=== PATIENT | female | born 1930 | race Caucasian/White ===

== ENCOUNTER 2018-10-29 08:44 | Emergency (ER) | payer MEDICARE, BC ==
--- NOTE | 2018-10-29 08:50 | EDM.PDOC ---
ED HPI GENERAL MEDICAL PROBLEM - General Chief Complaint: Respiratory Problem Stated Complaint: ER Time Seen by Provider: 10/29/18 08:48 Source of Information: Reports: EMS, EMS Notes Reviewed, Penitentiary Records, RN, RN Notes Reviewed History Limitations: Reports: Altered Mental Status (Severe advanced dementia) - History of Present Illness INITIAL COMMENTS - FREE TEXT/NARRATIVE: Patient is brought to the ED at [facility] via EMS for "trouble breathing." According to [place] records, the patient had an episode of "respiratory distress. " Patient is a poor historian due to advanced dementia. Vital signs were stable prior to transport. EMS reports vitals were also stable en route. Patient has not had any upper respiratory infections. No history of COPD. Patient did not have any productive cough. No reported chest pain or new focal neurological problems. Onset: Today Onset Date: 10/29/18 - Related Data Allergies Allergy/AdvReac Type Severity Reaction Status Date / Time No Known Drug Allergies Allergy Other Verified 10/29/18 08:52 Home Meds: Home Meds Carbidopa/Levodopa [Carbidopa-Levodopa 25-100] 25 - 100 mg PO DAILY 01/25/14 [ History] Simvastatin 20 mg PO DAILY 01/25/14 [History] amLODIPine Besylate [Amlodipine Besylate] 5 mg PO DAILY 01/25/14 [History] Aspirin 81 mg PO DAILY 01/28/14 [History] Bioflav,Lemon/Vit BComp&C [Lipo-Flavonoid Plus Caplet] 2 tab PO BID 01/28/14 [ History] Calcium Carbonate/Vitamin D3 [Calcium 600 + Vit D Tablet] 3 each PO DAILY [History] Donepezil [Aricept] 10 mg PO BEDTIME 01/28/14 [History] [id number] 149-Hyal [Glucosamine Chondroitin Complx] 2 cap PO DAILY 01/28/14 [History] Non-Formulary Medication [NF Drug] 1 cap PO DAILY 01/28/14 [History] Omeprazole [Prilosec] 40 mg PO BID 01/28/14 [History] PEG 400/Hypromellose/Glycerin [Artificial Tears Drops] 1 drop OP PRN 01/28/14 [ History] PEG 400/Propylene Glycol [Systane Lubricant] 1 drop EYEBOTH BID 01/28/14 [ History] ALPRAZolam [Xanax] 0.25 mg PO BEDTIME PRN #20 tablet 02/04/14 [Rx] Memantine HCl [Namenda Xr] 7 mg PO DAILY #30 cap.sr 02/04/14 [Rx] Azithromycin [Zithromax] 250 mg PO DAILY 5 Days #6 tab 10/29/18 [Rx] ED ROS GENERAL - Review of Systems Review Of Systems: Unable To Obtain (2/2 severe dementia) ED EXAM, GENERAL - Physical Exam Exam: See Below Exam Limited By: Altered Mental Status General Appearance: Alert, No Apparent Distress Respiratory/Chest: No Respiratory Distress, Lungs Clear, Normal Breath Sounds, No Accessory Muscle Use Cardiovascular: Normal Peripheral Pulses, Regular Rate, Rhythm, No Edema Peripheral Pulses: 2+: Radial (L), Radial (R) GI/Abdominal: Normal Bowel Sounds, Soft, Non-Tender Neurological: Alert, Confused, Disoriented Skin Exam: Warm, Dry, Intact, Normal Color Course - Vital Signs Last Recorded V/S: Last Vital Signs Temp 36.4 C 10/29/18 08:44 Pulse 72 10/29/18 08:44 Resp 20 10/29/18 08:44 BP 178/81 H 10/29/18 08:44 Pulse Ox 98 10/29/18 08:44 - Orders/Labs/Meds Orders: Active Orders 24 hr Category Date Time Status Potassium Chloride [Klor-Con M20] Med 10/29/18 09:39 Once 40 meq PO ONETIME ONE Labs: Laboratory Tests 10/29/18 10/29/18 Range/Units 09:12 09:12 WBC 6.1 (4.0-10.0) x10^3/uL RBC 4.06 (4.00-5.50) x10^6/uL Hgb 12.1 D (12.0-16.0) g/dL Hct 36.1 (33.0-47.0) % MCV 88.9 D (78.0-93.0) fL MCH 29.8 (26.0-32.0) pg MCHC 33.5 (32.0-36.0) g/dL RDW Coeff of Cassie 13.2 (10.0-15.0) % Plt Count 180 D (130-400) x10^3/uL Neut % (Auto) 64.1 (50.0-80.0) % Lymph % (Auto) 20.7 L (25.0-50.0) % [place] % (Auto) 13.6 H (2.0-11.0) % Eos % (Auto) 1.3 (0.0-4.0) % Baso % (Auto) 0.3 (0.2-1.2) % Sodium 142 (136-145) mmol/L Potassium 3.2 L (3.5-5.1) mmol/L Chloride 105 (98-107) mmol/L Carbon Dioxide 27 (21-32) mmol/L Anion Gap 13.2 (10-20) mmol/L BUN 14 D (7-18) mg/dL Creatinine 0.8 (0.55-1.02) mg/dL Est Cr Clr Drug Dosing TNP Estimated GFR (MDRD) > 60 Glucose 106 (74-106) mg/dL Calcium 9.1 (8.5-10.1) mg/dL - Radiology Interpretation Free Text/Narrative:: CXR: Possible developing right lung base pneumonia See scanned report in EMR for details Departure - Departure Time of Disposition: 09:30 Disposition: Home, Self-Care 01 Condition: Good Clinical Impression: Pneumonia Qualifiers: Pneumonia type: due to unspecified organism Laterality: right Lung location: lower lobe of lung Qualified Code(s): J18.1 - Lobar pneumonia, unspecified organism - Discharge Information *PRESCRIPTION DRUG MONITORING PROGRAM REVIEWED*: Not Applicable *COPY OF PRESCRIPTION DRUG MONITORING REPORT IN PATIENT JOSEE: Not Applicable Prescriptions: Azithromycin [Zithromax] 250 mg PO DAILY 5 Days #6 tab Instructions: Community-Acquired Pneumonia, Adult Forms: ED Department Discharge Additional Instructions: 1. Stay well hydrated and rest 2. ZPak as directed 3. Would recommend a repeat chest xray next week to ensure resolution 4. See PCP as symptoms warrant - Problem List Review Problem List Initiated/Reviewed/Updated: Yes - My Orders Last 24 Hours: My Active Orders 10/29/18 09:39 Potassium Chloride [Klor-Con M20] 40 meq PO ONETIME ONE - Assessment/Plan Last 24 Hours: My Active Orders 10/29/18 09:39 Potassium Chloride [Klor-Con M20] 40 meq PO ONETIME ONE Assessment:: Normal Respiratory examination Plan: Labs and xray reviewed. No acute emergency found. CXR shows a possible developing right lung base pneumonia. Patient will discharged back to the [facility]. No changes with any medications or treatments. Will start ZPak empirically. Would recommend repeat CXR next week to ensure resolution of pneumonia. KCL 40 meq given prior to discharge.
[2018-10-29 09:01] VITALS: BP 178/81
--- NOTE | 2018-10-29 09:23 | CR ---
[id number] RAD/RAD Chest PA or AP 1V EXAM: RAD Chest PA or AP 1V INDICATION: SHORTNESS OF BREATH. COMPARISON: None. DISCUSSION: Cardiomediastinal silhouette is normal in size and contour. Streaky parenchymal opacity in the right infrahilar region. This could represent either subsegmental atelectasis or developing pneumonia. Left lung is clear. IMPRESSION: Possible developing right lung base pneumonia. Acosta Guillermo MD 10/29/18 0921 Thank you for allowing us to participate in the care of your patient.
[2018-10-29 09:37] LABS: CHLORIDE,CL 105 mmol/L (98-107); SODIUM,NA 142 mmol/L (136-145)
[2018-10-29 09:39] LABS: ANION GAP 13.2 mmol/L (10-20)
[2018-10-29] MEDS ORDERED: Potassium Chloride 20 MEQ Tab.ER PO ONE (09:39)
== END 2018-10-29 10:00 | disposition home or self-care (01) ==
LOC: VM.ED 08:44
DX: J18.1 Lobar pneumonia, unspecified organism (principal); Z79.899 Other long term (current) drug therapy; Z79.82 Long term (current) use of aspirin
CPT/HCPCS: 36415; 71045; 80048; 85025; 99283; 99285; A9270

== ENCOUNTER 2019-05-18 13:48 | Emergency (ER) | payer MEDICARE, BC ==
--- NOTE | 2019-05-18 14:33 | EDM.PDOC ---
ED HPI GENERAL MEDICAL PROBLEM - General Chief Complaint: Lower Extremity Injury/Pain Stated Complaint: FELL THIS MORNING UNABLE TO STAND ON LEFT LEG Time Seen by Provider: 05/18/19 14:27 Source of Information: Reports: Longterm Records, Provider - History of Present Illness INITIAL COMMENTS - FREE TEXT/NARRATIVE: Karol is an 88 y/o female who lives in the [facility]. Today at around 1015 she fell while trying to sit down into a chair and land ed on her left hip and shoulder. She was assisted up by staff, but ever since the fall she cannot bear weight on her left leg. Dr Cande Felder is her PCP and was notified by the long term staff and her PCP advised she be sent to the ER. Patient has history of Dementia and cannot answer questions about what happened. - Related Data Allergies Allergy/AdvReac Type Severity Reaction Status Date / Time No Known Drug Allergies Allergy Other Verified 05/18/19 14:19 Home Meds: Home Meds Carbidopa/Levodopa [Carbidopa-Levodopa 25-100] 25 - 100 mg PO DAILY 01/25/14 [ History] amLODIPine Besylate [Amlodipine Besylate] 10 mg PO DAILY 01/25/14 [History] Calcium Carbonate/Vitamin D3 [Calcium 600 + Vit D Tablet] 2 tab PO BID 01/28/14 [History] Non-Formulary Medication [NF Drug] 1 cap PO DAILY 01/28/14 [History] ALPRAZolam [Xanax] 0.25 mg PO BID 10/29/18 [History] Acetaminophen [Tylenol Arthritis Pain] 650 mg PO BID 10/29/18 [History] Cranberry Fruit Extract [Cranberry] 425 mg PO TID 10/29/18 [History] Pantoprazole Sodium [Protonix] 20 mg PO DAILY 10/29/18 [History] Bisacodyl [Laxative] 5 mg PO ASDIRECTED PRN 05/18/19 [History] Hydrocodone/Acetaminophen [Hydrocodon-Acetaminophen 5-325] 1 each PO Q6H 7 Days #30 tablet 05/18/19 [Rx] Lactobacillus Rhamnosus GG [Culturelle] 1 cap PO DAILY 05/18/19 [History] QUEtiapine [SEROquel] 25 mg PO BID 05/18/19 [History] Sennosides/Docusate Sodium [Senna Plus 8.6-50 mg Softgel] 1 each PO ASDIRECTED PRN 05/18/19 [History] traMADol [Ultram] 25 mg PO Q6H PRN 05/18/19 [History] Past Medical History HEENT History: Reports: Hard of Hearing Cardiovascular History: Reports: High Cholesterol, Hypertension Gastrointestinal History: Reports: Chronic Constipation, PUD, Other (See Below) Other Gastrointestinal History: gastric ulcer Musculoskeletal History: Reports: Osteoporosis Neurological History: Reports: Other (See Below) Other Neuro History: restless legs Psychiatric History: Reports: Dementia, Other (See Below) Other Psychiatric History: restless and agitiation Endocrine/Metabolic History: Reports: Osteoporosis Hematologic History: Reports: Anemia Social & Family History - Tobacco Use Smoking Status *Q: Unknown Ever Smoked Review of Systems - Review of Systems Review Of Systems: Unable To Obtain Reason Not Obtained: Patient has history of dementia and is unreliable ED EXAM, GENERAL - Physical Exam Exam: See Below Exam Limited By: Altered Mental Status General Appearance: Alert, WD/WN, Other (elderly female, confused when staff goes near for cares and becomes quite combative) Ears: Hearing Grossly Normal Nose: Normal Inspection, Normal Mucosa EKG INTERPRETATION EKG Date: 05/18/19 Time: 15:49 Rhythm: NSR Rate (Beats/Min): 91 [place]: Normal P-Wave: Present QRS: Normal ST-T: Normal EKG Interpretation Comments: Sinus Rhythm Course - Vital Signs Text/Narrative:: The patient was seen by the ASSEMBLY AND PACKING SUPERVISOR. Labs, EKG, and Xrays were ordered. 1610 Patient more uncomfortable and crying after xrays and EKG done. Morphine 1mg IVP ordered for pain. [address] Brittany Felder, PCP. 1625 [facility] contacted for Ortho consult and further recommendations. [address] Alatorre, Ortho content curator tonight at [facility]. Ortho recommends no further imaging and concurs that the pelvis fx is non- surgical. He recommends pain management and non-weightbearing status for discharge. Per collaboration with Ortho and PCP will have patient return to the long term with pain meds and NWT bearing status until seen by PCP next week. This seems to be the most beneficial plan for a patient with her age/condition. If she fails outpatient management at the long term, consider admission for pain management. Patient left the ER in stable condition. She was in the wheelchair assisted by nursing informatics analyst and her son. Last Recorded V/S: Last Vital Signs Temp 36.6 C 05/18/19 13:50 Pulse 78 05/18/19 13:50 Resp 16 05/18/19 13:50 BP 126/60 05/18/19 13:50 Pulse Ox 96 05/18/19 13:50 - Orders/Labs/Meds Orders: Active Orders 24 hr Category Date Time Status EKG Documentation Completion [RC] STAT Care 05/18/19 15:01 Active Pelvis wo Cont [CT] Stat Exams 05/18/19 16:26 Ordered CULTURE BLOOD [BC] Stat Lab 05/18/19 15:19 Received Sodium Chloride 0.9% [Saline Flush] Med 05/18/19 16:25 Active 10 ml FLUSH ASDIRECTED PRN Saline Lock Insert [OM.PC] Stat Oth 05/18/19 16:26 Ordered Medication Orders Sodium Chloride (Saline Flush) 10 ml FLUSH ASDIRECTED PRN PRN Reason: Keep Vein Open Labs: Laboratory Tests 05/18/19 05/18/19 05/18/19 Range/Units 15:11 15:19 15:19 WBC 9.4 (4.0-10.0) x10^3/uL RBC 4.33 (4.00-5.50) x10^6/uL Hgb 12.8 (12.0-16.0) g/dL Hct 38.7 (33.0-47.0) % MCV 89.4 (78.0-93.0) fL MCH 29.6 (26.0-32.0) pg MCHC 33.1 (32.0-36.0) g/dL RDW Coeff of Cassie 12.6 (10.0-15.0) % Plt Count 177 (130-400) x10^3/uL Neut % (Auto) 72.1 (50.0-80.0) % Lymph % (Auto) 15.4 L (25.0-50.0) % [place] % (Auto) 12.0 H (2.0-11.0) % Eos % (Auto) 0.4 (0.0-4.0) % Baso % (Auto) 0.1 L (0.2-1.2) % Sodium 144 (136-145) mmol/L Potassium 3.6 (3.5-5.1) mmol/L Chloride 103 (98-107) mmol/L Carbon Dioxide 31 (21-32) mmol/L Anion Gap 13.6 (10-20) mmol/L BUN 17 (7-18) mg/dL Creatinine 0.8 (0.55-1.02) mg/dL Est Cr Clr Drug Dosing TNP Estimated GFR (MDRD) > 60 Glucose 100 (74-106) mg/dL Lactic Acid (0.4-2.0) mmol/L Calcium 9.8 (8.5-10.1) mg/dL Corrected Calcium 9.96 (8.5-10.1) mg/dL Total Bilirubin 0.6 (0.2-1.0) mg/dL AST 20 (15-37) U/L ALT 24 (14-59) U/L Alkaline Phosphatase 67 (46-116) U/L Troponin I < 0.017 (<=0.056) ng/mL Total Protein 7.0 (6.4-8.2) g/dL Albumin 3.8 (3.4-5.0) g/dL Globulin 3.2 Albumin/Globulin Ratio 1.19 Urine Color Dark yellow H (YELLOW) Urine Appearance Slightly cloudy H (CLEAR) Urine pH 6.5 (5.0-8.0) Ur Specific [place] 1.020 Urine Protein Trace H (NEGATIVE) mg/dL Urine Glucose (UA) Negative (NEGATIVE) mg/dL Urine Ketones Trace H (NEGATIVE) mg/dL Urine Occult Blood Negative (NEGATIVE) Urine Nitrite Negative (NEGATIVE) Urine Bilirubin Negative (NEGATIVE) Urine Urobilinogen 0.2 (0.2) EU/dL Ur Leukocyte Esterase Negative (NEGATIVE) Urine RBC 0-5 (NOT SEEN) /HPF Urine WBC 0-5 (NOT SEEN) /HPF Ur Squamous Epith Cells Few H (NEGATIVE) /HPF Urine Bacteria Rare (NEGATIVE) /HPF Hyaline Casts Occasional H (NEGATIVE) /HPF Urine Mucus Many H (NEGATIVE) /LPF 05/18/19 Range/Units 15:19 WBC (4.0-10.0) x10^3/uL RBC (4.00-5.50) x10^6/uL Hgb (12.0-16.0) g/dL Hct (33.0-47.0) % MCV (78.0-93.0) fL MCH (26.0-32.0) pg MCHC (32.0-36.0) g/dL RDW Coeff of Cassie (10.0-15.0) % Plt Count (130-400) x10^3/uL Neut % (Auto) (50.0-80.0) % Lymph % (Auto) (25.0-50.0) % [place] % (Auto) (2.0-11.0) % Eos % (Auto) (0.0-4.0) % Baso % (Auto) (0.2-1.2) % Sodium (136-145) mmol/L Potassium (3.5-5.1) mmol/L Chloride (98-107) mmol/L Carbon Dioxide (21-32) mmol/L Anion Gap (10-20) mmol/L BUN (7-18) mg/dL Creatinine (0.55-1.02) mg/dL Est Cr Clr Drug Dosing Estimated GFR (MDRD) Glucose (74-106) mg/dL Lactic Acid 1.7 (0.4-2.0) mmol/L Calcium (8.5-10.1) mg/dL Corrected Calcium (8.5-10.1) mg/dL Total Bilirubin (0.2-1.0) mg/dL AST (15-37) U/L ALT (14-59) U/L Alkaline Phosphatase (46-116) U/L Troponin I (<=0.056) ng/mL Total Protein (6.4-8.2) g/dL Albumin (3.4-5.0) g/dL Globulin Albumin/Globulin Ratio Urine Color (YELLOW) Urine Appearance (CLEAR) Urine pH (5.0-8.0) Ur Specific [place] Urine Protein (NEGATIVE) mg/dL Urine Glucose (UA) (NEGATIVE) mg/dL Urine Ketones (NEGATIVE) mg/dL Urine Occult Blood (NEGATIVE) Urine Nitrite (NEGATIVE) Urine Bilirubin (NEGATIVE) Urine Urobilinogen (0.2) EU/dL Ur Leukocyte Esterase (NEGATIVE) Urine RBC (NOT SEEN) /HPF Urine WBC (NOT SEEN) /HPF Ur Squamous Epith Cells (NEGATIVE) /HPF Urine Bacteria (NEGATIVE) /HPF Hyaline Casts (NEGATIVE) /HPF Urine Mucus (NEGATIVE) /LPF Meds: Medications Generic Name Dose Route Start Last Admin Trade Name Fredino PRN Reason Stop Dose Admin Sodium Chloride 10 ml 05/18/19 16:25 Saline Flush FLUSH ASDIRECTED PRN Keep Vein Open Discontinued Medications Generic Name Dose Route Start Last Admin Trade Name Josey PRN Reason Stop Dose Admin Morphine Sulfate 1 mg 05/18/19 16:25 05/18/19 16:40 Morphine IVPUSH 05/18/19 16:26 1 mg ONETIME ONE Administration - Radiology Interpretation Free Text/Narrative:: XR Pelvis=note nondisplaced fracture inferior left pubic rami, consider CT for more definitive evaluation CXR=no acute findings Departure - Departure Time of Disposition: 17:42 Disposition: DC/Tfer to Skilled Nursing Care 63 Condition: Good Clinical Impression: Nondisplaced fracture of pelvis, Fall - Discharge Information *PRESCRIPTION DRUG MONITORING PROGRAM REVIEWED*: Not Applicable *COPY OF PRESCRIPTION DRUG MONITORING REPORT IN PATIENT JOSEE: Not Applicable Prescriptions: Hydrocodone/Acetaminophen [Hydrocodon-Acetaminophen 5-325] 1 each PO Q6H 7 Days #30 tablet Instructions: Simple Pelvic Fracture, Adult Referrals: Brittany Felder DO [Primary Care Provider] - Forms: ED Department Discharge Additional Instructions: -Hydrocodone/APAP 5/325mg oral every 6 hours for pain. Will schedule pain meds for return to long term. -Dr Brittany Felder will see patient on long term rounds next week. -Activity: Non-weight bearing until seen by Dr Felder for further orders. -Return to the ER of call the patient's PCP if any further concerns or the patient is not able to tolerate oral pain meds/activity at long term. Sepsis Event Note - Evaluation Sepsis Screening Result: No Definite Risk - Focused Exam Vital Signs: Vital Signs Temp Pulse Resp BP Pulse Ox 05/18/19 13:50 36.6 C 78 16 126/60 96 Date Exam was Performed: 05/18/19 Time Exam was Performed: 17:42 - My Orders Last 24 Hours: My Active Orders 05/18/19 15:01 EKG Documentation Completion [RC] STAT 05/18/19 15:19 CULTURE BLOOD [BC] Stat 05/18/19 16:25 Sodium Chloride 0.9% [Saline Flush] 10 ml FLUSH ASDIRECTED PRN 05/18/19 16:26 Pelvis wo Cont [CT] Stat Saline Lock Insert [OM.PC] Stat - Assessment/Plan Last 24 Hours: My Active Orders 05/18/19 15:01 EKG Documentation Completion [RC] STAT 05/18/19 15:19 CULTURE BLOOD [BC] Stat 05/18/19 16:25 Sodium Chloride 0.9% [Saline Flush] 10 ml FLUSH ASDIRECTED PRN 05/18/19 16:26 Pelvis wo Cont [CT] Stat Saline Lock Insert [OM.PC] Stat
[2019-05-18 15:54] LABS: CHLORIDE,CL 103 mmol/L (98-107); SODIUM,NA 144 mmol/L (136-145)
[2019-05-18 15:55] LABS: ANION GAP 13.6 mmol/L (10-20)
--- NOTE | 2019-05-18 16:21 | CR ---
[id number] RAD/RAD Chest PA or AP 1V EXAM: RAD Chest PA or AP 1V INDICATION: FALL, HX OF DEMENTIA. COMPARISON: None. DISCUSSION: Cardiomediastinal silhouette is normal in size and contour. No infiltrate, effusion, pneumothorax, or edema. Pulmonary hyperinflation. IMPRESSION: No acute cardiopulmonary abnormality. Corona De La Torre DO 05/18/19 4202 Thank you for allowing us to participate in the care of your patient.
--- NOTE | 2019-05-18 16:22 | CR ---
[id number] RAD/RAD Pelvis 1-2V EXAM: SINGLE VIEW PELVIS. INDICATION: FALL, WILL NOT BEAR WEIGHT ON LEFT LEG. COMPARISON: None. DISCUSSION: Question nondisplaced fracture involving the left inferior pubic ramus. No other fractures are definitely identified. Mild degenerative changes of the hips bilaterally. IMPRESSION: 1. Question nondisplaced fracture involving the inferior left pubic ramus. CT without contrast is recommended for more definitive evaluation. Corona De La Torre DO 05/18/19 [id number] Thank you for allowing us to participate in the care of your patient.
[2019-05-18] MEDS ORDERED: Sodium Chloride 0.9% 10 ML Syringe FLUSH PRN (16:25)
[2019-05-18] MEDS ORDERED: Morphine 2 MG/ML Syringe IVPUSH ONE (16:25)
[2019-05-18 18:54] VITALS: PULSE 76
[2019-05-18 18:55] VITALS: BP 125/78
== END 2019-05-18 18:03 ==
LOC: VM.ED 13:48
DX: S32.592A Other specified fracture of left pubis, initial encounter for closed fracture (principal); I10 Essential (primary) hypertension; E78.00 Pure hypercholesterolemia, unspecified; F03.90 Unspecified dementia, unspecified severity, without behavioral disturbance, psychotic disturbance, mood disturbance, and anxiety; Z79.899 Other long term (current) drug therapy; W07.XXXA Fall from chair, initial encounter; Y93.89 Activity, other specified; Y92.129 Unspecified place in nursing home as the place of occurrence of the external cause
CPT/HCPCS: 36415; 71045; 72170; 80053; 81001; 83605; 84484; 85025; 87040; 93005; 93010; 96374; 99284-25; 99284-GF; J2270